=== PATIENT | female | born 1995 | race Caucasian/White ===

== ENCOUNTER 2017-12-27 00:55 | Emergency (ER) | payer BC, MEDICAID ==
--- NOTE | 2017-12-27 01:29 | ED Physician Chart ---
ED Chief Complaint/HPI - Patient Information Date Seen:: 12/27/17 Time Seen:: 01:26 Chief Complaint:: uti History of Present Illness:: 22 yr old female on macrobid for the last few days with chills fever [place] and back pain Allergies:: Allergies Allergy/AdvReac Type Severity Reaction Status Date / Time No Known Allergies Allergy Verified 12/27/17 01:03 Vitals:: Vital Signs - 8 hr 12/27/17 01:00 Temp 98.4 F HR 105 RR 18 BP 117/87 O2 Sat % 97 ED Review of Systems - Review of Systems General/Constitutional: Chills Skin: No skin lesions Head: No headache Eyes: No loss of vision ENT: No earache Neck: No neck pain Cardio Vascular: No chest pain Pulmonary: No SOB GI: Nausea Therapeutic Sales Specialist: No vaginal discharge Musculoskeletal: No bone or joint pain Endocrine: No polyuria Psychiatric: No suicidal ideation Hematopoietic: No bruising Allergic/Immuno: No urticaria Neurological: No syncope Family Medical History - Family Member Mother History Unknown: Yes ED Septic Shock - . Is Septic Shock (SBP<90, OR Lactate>4 mmol\L) present?: No - <6hrs of presentation: Vital Signs: Vital Signs - 8 hr 12/27/17 01:00 Temp 98.4 F HR 105 RR 18 BP 117/87 O2 Sat % 97 ED Reassessment (Disposition) - Diagnosis Diagnosis:: uti recurrent - Aftercare/Follow up Instructions Aftercare/Follow-Up Instructions:: Counseled pt regarding lab results/diagnosis & need follow up Medication Prescribed:: doxy bactrim - Patient Disposition Discharge/Transfer:: Home Condition at Disposition:: Stable
== END 2017-12-27 02:05 | disposition home or self-care (01) ==
LOC: ER 00:55
DX: N39.0 Urinary tract infection, site not specified (principal)
CPT/HCPCS: 99283; 96372; 81025; Q0162; J0696; Z7502